=== PATIENT | female | born 1965 | race American Indian/Alaskan Native ===

== ENCOUNTER 2018-09-14 06:02 | Outpatient (CLI) | payer BC | END 2018-09-14 06:03 | disposition home or self-care (01) | LOC: CARDIO 06:02 | DX: R94.31 Abnormal electrocardiogram [ECG] [EKG] (principal); I42.9 Cardiomyopathy, unspecified; I10 Essential (primary) hypertension; I11.9 Hypertensive heart disease without heart failure ==